=== PATIENT | female | born 1965 | race Caucasian/White ===

== ENCOUNTER 2024-12-08 09:00 | Outpatient (REF) | payer OTHER, SELFPAY ==
--- NOTE | ~2024-12-08 | XR_ITS ---
EXAMINATION: XR HIP 2 OR MORE VIEWS RIGHT HISTORY: M25.551 - Pain in right hip COMPARISON: There are no prior studies available for comparison. FINDINGS: A single AP view of the pelvis and two views of the right hip are submitted. Osseous mineralization is normal. There is no fracture or dislocation. There is mild joint space narrowing. The soft tissues are unremarkable. XR/XR hip RT min 2V IMPRESSION: Mild joint space narrowing. Electronically signed by: Jim Guevara MD 12/08/2024 03:20 PM EDT
--- OUTSIDE RECORDS SUMMARY | 2024-12-09 09:38 | XMS_ITS | Patient Health Record ---
Author Organization [employer] Address [address] [place] [address] Care Team Providers Care Die Trimmer Name Role Phone OSMARNguyen DELUCA Primary Care Provider [phone] Cyndi Sanchez Unavailable [phone] Tova Garcia Unavailable [phone] Allergies Allergen (clinical drug ingredient) Drug/Non Drug Allergy documented on EMR Reaction Allergy Type Onset Date Status Pollen pollen (uncoded) Unknown Allergy Act marcos sertraline Zoloft Unknown Drug Allergy Active Results Component Value Reference Range Notes Albumin/Creatinine Ratio,Uri ne-[id number] Reviewed date:11/12/2024 07:49:44 AM Interpretation: Performing Lab:[facility], [address] [facility], Phone - [phone], Director - MDJustiny Notes/Report: Creatinine, Urine 120.9 Not Estab. mg/dL Albumin, Urine 4.9 Not Estab. ug/mL Alb/Creat Ratio 4 0-29 mg/g creat Normal: 0 - 29 Moderately increased: 30 - 300 Severely increased: >300 Lipid Panel-[id number] Reviewed date:11/12/2024 07:49:46 AM Interpretation: Performing Lab:[facility], [address] [facility], [place], Phone - [phone], Director - MDCaroledry Notes/Report: Cholesterol, Total 219 100-199 mg/dL Triglycerides 150 0-149 mg/dL HDL Cholesterol 56 >39 mg/dL VLDL Cholesterol Tashi 27 5-40 mg/dL LDL Chol Calc (NIH) 136 0-99 mg/dL Comp. Metabolic Panel (14)-3 [id number] Reviewed date:11/12/2024 07:49:49 AM Interpretation: Performing Lab:[facility], [address] [place] [address], Phone - [phone], Director - Ana Notes/Report: Glucose 147 70-99 [...] IU/L ALT (SGPT) 44 0-32 IU/L Hemoglobin [id number] Reviewed date:11/12/2024 07:49:41 AM Interpretation: Performing Lab:[facility] [place], [address] [place] [address], Phone - [phone], Director - Ana Notes/Report: Hemoglobin A1c 6.8 4.8-5.6 % . Prediabetes: 5.7 - 6.4 Diabetes: >6.4 Glycemic control for adults with diabetes: <7.0 Hemoglobin A1c Reviewed date:05/12/2024 07:29:17 AM Interpretation: Performing Lab:[facility], [address] [place] [address], Phone - [phone], Director - Victoriano Notes/Report: Hemoglobin A1c 6.6 Reference Range: [place] [employer] (ADA) Guidelines: <5.7: Decreased risk for diabetes 5.7 - 6.4: Increased risk for diabetes >6.4: Ongoing Hyperglycemia of any cause <7.0: Glycemic control for adults with diabetes Estimated Average Glucose 143 Albumin/Creatinine Ratio,Uri ne-[id number] Reviewed date:05/12/2024 07:28:28 AM Interpretation: Performing Lab:[facility] [place], [address] [place] [address], Phone - [phone], Director - Ana Notes/Report: Creatinine, Urine 184.9 Not Estab. mg/dL Albumin, Urine 18.3 Not Estab. ug/mL Alb/Creat Ratio 10 0-29 mg/g creat Normal: 0 - 29 Moderately increased: 30 - 300 Severely increased: >300 Reason For Referral Reason Evaluation and manag ement Diagnosis 1 Obstructive sleep ap bradly (adult) (pediatric) (G47.33) Referral Organization [facility] Referring Provider First Name SANDRINE Referring Provider Last Name BENITO Referring Provider Speciality Internal edicine Referred Provider Specialty Sleep Medici ne General Notes Referral sent [facility] - Office will call patient for scheduling.Enedelia Latraya 04/08/2024 01:14:56 PM > Referral Priority Routine Reason Evaluation and manag ement Diagnosis 1 Encounter for screen ing for malignant neoplasm of skin (Z12.83) Referral Organization [facility] Referring Provider First Name Tova Referring Provider Last Name Radha Referred Provider Specialty Dermatology General Notes Referral sent to [facility] ([address] [place] [address] ) - Office will call patient for scheduling., Jules Mcdaniels 05/15/2024 01:20:45 PM > Referral Priority Routine Reason Evaluation and manag ement Diagnosis 1 Type 2 diabetes melita itus with unspecified complications (E11.8) Referral Organization [facility] Referring Provider First Name Tova Referring Provider Last Name Radha Referred Provider Specialty Vascular Tulio lonny General Notes Referral sent to [facility] ([address] [address] ) - Office will call patient for scheduling.Enedelia Latraya 05/15/2024 02:06:39 PM > Referral Priority Routine Reason Please evaluate and treat Please evaluate and treat Diagnosis 1 Right upper quadrant pain (R10.11) Referral Organization [facility] Referring Provider First Name SANDRINE Referring Provider Last Name BENITO Referring Provider Speciality Internal edicine Referred Provider Specialty Orthopedic S urgery General Notes Please call the [facility] to schedule the appointment, Ioana Maher [...] Active Misc. Devices - Auto CPAP machine [facility] heated humidifier, Setting 9-12 cm H20, please [...] 500 MG TAKE 1 TABLET BY [place] [facility] TWICE DAILY WITH A MEAL for 30 [...] Disorder due to type 2 diabetes mellitus (176974514) Type 2 diabetes mellitus with unspecified complications (E11.8) Active confirmed Problem Morbid obesity (disorder) (945300163) Morbid (severe) obesity due to excess calories (E66.01) Active confirmed Problem Mixed hyperlipidemia (930426447) Mixed hyperlipidemia (E78.2) Active confirmed Problem Generalized anxiety disorder (09800224) Generalized anxiety disorder (F41.1) Active confirmed Problem Anxiety disorder (328138764) Anxiety disorder, unspecified (F41.9) Active confirmed Problem Obstructive sleep apnea syndrome (46068167) Obstructive sleep apnea (adult) (pediatric) (G47.33) Active confirmed Problem Gastro-esophageal reflux disease without esophagitis (325276595) Gastro-esophageal reflux disease without esophagitis (K21.9) Active confirmed Problem Fatty liver (301490240) Fatty (change of) liver, not elsewhere classified (K76.0) Active confirmed Problem Adult health examination (758666167) Encounter for general adult medical examination without abnormal findings (Z00.00) Active confirmed Problem Essential hypertension (43451479) Essential (primary) hypertension (I10) Active confirmed Vital Signs Heart Rate 91 /min 09/18/2024 Temperature 97.6 degrees Fahrenheit 09/18/2024 Blood pressure diastolic 82 mm Hg 09/18/2024 Oximetry 97 % 09/18/2024 Height 61.61 in 09/18/2024 Blood pressure systolic 110 mm Hg 09/18/2024 Weight 290.6 lbs 09/18/2024 BMI 53.82 kg/m2 09/18/2024 Encounters Encounter Location Date Provider Diagnosis [address] [place] [address] 04/22/[address] [place] [address] 05/13/2024 Tova Garcia Type 2 diabetes mellitus with unspecified complications E11.8 ; Annual visit for general adult medical examination without abnormal findings Z00.00 ; Essential (primary) hypertension I10 ; Generalized anxiety disorder F41.1 ; Gastro-esophageal reflux disease without esophagitis K21.9 ; Fatty (change of) liver, not elsewhere classified K76.0 and Obstructive sleep apnea (adult) (pediatric) G47.[address] [place] [address] 09/18/2024 SANDRINE OLIVER Type 2 diabetes mellitus with unspecified complications E11.8 ; Pain in right hip M25.551 ; Essential (primary) hypertension I10 ; Generalized anxiety disorder F41.1 ; Gastro-esophageal reflux disease without esophagitis K21.9 ; Fatty (change of) liver, not elsewhere classified K76.0 and Obstructive sleep apnea (adult) (pediatric) G47.33 [facility] [address] [facility] [facility] [address] [place] [address] 11/13/2024 Ghadeer Khalifloum Type 2 diabetes mellitus with unspecified complications E11.8 ; Pain in right hip M25.551 ; Essential (primary) hypertension I10 ; Generalized anxiety disorder F41.1 ; Gastro-esophageal reflux disease without esophagitis K21.9 ; Fatty (change of) liver, not elsewhere classified K76.0 ; Obstructive sleep apnea (adult) (pediatric) G47.33 and Mixed hyperlipidemia E78.[address] [place] [address] 12/10/[address] [place] [address] 12/19/[address] [place] [address] 12/21/2023 [facility] Type 2 diabetes mellitus with unspecified complications E11.[address] [place] [address] 01/17/2024 Tova Khalifemili Generalized anxiety disorder F41.[address] [place] [address] 01/21/[address] [place] [address] 05/13/[address] [place] [address] 05/15/[address] [place] [address] 05/22/[address] [place] [address] 09/05/2024 [facility] [address] [facility] [address] [facility] [place] [address] 11/11/2024 [facility] [address] [facility] [address] [place] [address] 12/10/2023 [facility] [address] [address] [facility] [address] [facility] [place] [address] 12/25/2023 [facility] [address] [facility] [address] [facility] [place] [address] 12/26/2023 [facility] [address] [facility] [address] [facility] [place] [address] 12/27/2023 [facility] [address] [facility] [address] [facility] [place] [address] 01/09/2024 [facility] [address] [facility] [address] [facility] [place] [address] 01/13/2024 [facility] [address] [facility] [address] [facility] [place] [address] 01/14/2024 [facility] [address] [address] [facility] [place] [address] 01/22/2024 [facility] [address] [facility] [address] [facility] [place] [address] 01/22/2024 [facility] [address] [facility] [place] [address] 01/23/2024 [facility] [address] [address] [facility] [place] [address] 03/11/2024 [facility] [address] [facility] [address] [facility] [place] [address] 03/14/2024 [facility] [address] [facility] [address] [facility] [place] [address] 03/14/[address] [place] [address] 04/06/[address] [place] [address] 04/08/[address] [place] [address] 04/15/[address] [place] [address] 04/16/[address] [place] [address] 04/17/[address] [place] [address] 04/17/[address] [place] [address] 04/18/[address] [place] [address] 09/24/2024 [facility] Assessments Encounter Date Diagnosis (ICD Code) Assessment [...] on taking full tab. 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 Foot care [...] on taking full tab. 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 Foot care [...] and referral to orthopedic. She can take slvl-udu-oruksui Tylenol arthritis along with NSAIDs with food. Encouraged to lose weight DM type II. -A1c is 6.6. She has been taking Jardiance 25mg half tab. Advised on taking full tab. 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 Foot care [...] and referral to orthopedic. She can take bevn-myt-tmjyitl Tylenol arthritis along with NSAIDs with food. Encouraged to lose weight DM type II. -A1c is 6.6. She has been taking Jardiance 25mg half tab. Advised on taking full tab. 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 Foot care [...] taking Jardiance 25mg . 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 Foot care [...] during this telemedicine visit. Provider located at [facility] [place] in [facility] General concerns have been [...] taking Jardiance 25mg . 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 Foot care [...] during this telemedicine visit. Provider located at [facility] [place] in [facility] General concerns have been [...] taking Jardiance 25mg . 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 Foot care [...] during this telemedicine visit. Provider located at [facility] [place] in [facility] General concerns have been [...] on taking full tab. 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 Foot care [...] and referral to orthopedic. She can take phsq-sxp-tkxinnw Tylenol arthritis along with NSAIDs with food. Encouraged to lose weight DM type II. -A1c is 6.6. She has been taking Jardiance 25mg half tab. Advised on taking full tab. 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 Foot care [...] and referral to orthopedic. She can take kzqy-bud-vbviezv Tylenol arthritis along with NSAIDs with food. Encouraged to lose weight DM type II. -A1c is 6.6. She has been taking Jardiance 25mg half tab. Advised on taking full tab. 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 Foot care [...] on taking full tab. 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 Foot care [...] taking Jardiance 25mg . 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 Foot care [...] during this telemedicine visit. Provider located at [facility] in [place] in [facility] General concerns have been [...] taking Jardiance 25mg . 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 Foot care [...] during this telemedicine visit. Provider located at [facility] [place] in [facility] General concerns have been [...] on taking full tab. 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 Foot care [...] and referral to orthopedic. She can take tvzg-hhi-ukooleo Tylenol arthritis along with NSAIDs with food. Encouraged to lose weight DM type II. -A1c is 6.6. She has been taking Jardiance 25mg half tab. Advised on taking full tab. 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 Foot care [...] and referral to orthopedic. She can take pbrq-djg-rloxsyo Tylenol arthritis along with NSAIDs with food. Encouraged to lose weight DM type II. -A1c is 6.6. She has been taking Jardiance 25mg half tab. Advised on taking full tab. 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 Foot care [...] on taking full tab. 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 Foot care [...] taking Jardiance 25mg . 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 Foot care [...] during this telemedicine visit. Provider located at [facility] [place] in [facility] General concerns have been [...] taking Jardiance 25mg . 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 Foot care [...] during this telemedicine visit. Provider located at [facility] [place] in [facility] General concerns have been [...] on taking full tab. 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 Foot care [...] and referral to orthopedic. She can take kemg-hvj-ascjiqb Tylenol arthritis along with NSAIDs with food. Encouraged to lose weight DM type II. -A1c is 6.6. She has been taking Jardiance 25mg half tab. Advised on taking full tab. 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 Foot care [...] taking Jardiance 25mg . 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 Foot care [...] during this telemedicine visit. Provider located at [facility] [place] in [facility] General concerns have been [...] palpitation we can refer her to a corn chip maker for 30 days loop recorder Hypertension will control continue current Saniya Diabetes mellitus controlled continue the audience and metformin All questions were answered today no new acute issues Plan Of Treatment Pending Test Test Name Order Date X ray : Knee, left 2 views 12/19/2018 Electrocardiogram (ECG) 12/06/2017 Xray: Hip Ktyus-Mxutnkrh-Ixo 2 Vws 09/18 Hemoglobin [id number] 05/13/2024 Lipid Panel-[id number] 11/13/2024 Future Test Test Name Order Date US Liver 12/06/2017 Insurance Providers Payer Name Payer Address Payer Phone Subscriber Number Group Number Insured Name Patient Relationship to Insured Coverage Start Date Coverage End Date [employer] [address] [place] [phone] [id number] Yulisa Dominguez Self - patient is the insured Medical (General) History Medical History History ICD Code hypertension, benign Anxiety disorder Fatty liver and mild hepatomegaly Obstructive sleep apnea Class III obesity diabetes mellitus type 2 Surgical History Surgery Date(Month/Year) knee surgery polypectomy, uterine polyps 08/2020 polypectomy, uterine polyps 11/2021 total hysterectomy, Dr. Broussard [facility] 05/2022 Hospitalization History Reason Date(Month/Year)
== END 2024-12-08 09:01 | disposition home or self-care (01) ==
LOC: HO.HOSX 09:00
PROVIDERS: Visit Provider Physician Assistant
DX: M25.551 Pain in right hip (principal)
CPT/HCPCS: 73502

== ENCOUNTER 2024-12-08 14:27 | Outpatient (AMB) | payer OTHER, SELFPAY ==
--- NOTE | 2024-12-08 14:34 | A.OFFVIS_ITS ---
Vital Signs 12/08/24 14:47 Height 5 ft 1 in Intake Visit Reasons: [employer]-Right hip pain Intake Note: Yulisa is a 59 year old female who presents as a new patient for an evaluation of right hip pain. Patient was seen by her PCP for right groin pain that started in May/June of 2023. Denies injury. Patient reports that she is unsure if her pain is related to her bone on bone in both of her knees. She also states unsure if this is related to her back, stating today when she moved her head to the side she felt pain in her hip. Her pain is located in her groin area and she has numbness in her upper thigh area. At times her pain makes it difficult at times to apply weight. No previous treatment. She uses a cane with ambulation. Allergies pollen extracts Allergy (Verified 12/08/24 14:36) Unknown sertraline [From Zoloft] Adverse Reaction (Verified 12/08/24 14:42) vomitting, fever HPI HPI [employer]-Right hip pain: Details: 59 yo female presents to the office today for right hip pain. She states the pain is located within the groin. She feels the hip catches or locks. PCP suggested Tylenol to help her sleep. She cannot walk long distances. She states the pain is often in the si joint region and when palpated it does extend to the groin. She denies n/t She denies lateral sided hip pain. 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 No pain with hip flexion. Mild discomfort over the si joint. NVI. Results Reviewed Results Reviewed: Xrays were obtained in the office today and personally reviewed by me of the right hip show mild oa Assessment & Plan Assessment & Plan (1) Chronic SI joint pain: Code(s): M53.3 - Sacrococcygeal disorders, not elsewhere classified; G89.29 - Other chronic pain Category: Medical Plan: I recommend a course of PT to work on glute strength and lumbar /core stabilization . I did educate her on Pelvic floor therapy and how this can be helpful is resolving her hip/buttock pain. I explained the internal pelvic floor muscles an contribute to lowback / hip pain and tightness. I gave her some information on a contact center manager for pelvic floor therapy as well. If symptoms persist or worsen, she will contact me, otherwise, f/u prn. Orders: Orders XR hip RT min 2V Today M25.551 - Pain in right hip PT Evaluation and Treatment Today G89.29 - Other chronic pain, M53.3 - Sacrococcygeal disorders, not elsewhere classified Medications: New celecoxib (Celebrex) 200 mg PO BID 60 caps 3RF 30 days Coding Level of Care Code New Pt Level 3 (32220) Diagnoses Chronic SI joint pain M53.3; G89.29
--- OUTSIDE RECORDS SUMMARY | 2024-12-08 16:21 | XMS_ITS | Patient Health Record ---
Author Organization [facility] Address [address] [place] [address] Care Team Providers Care Business Intelligence Developer Name Role Phone BENITO DELUCA Primary Care Provider [phone] Cyndi Sanchez Unavailable [phone] Tova Garcia Unavailable [phone] Allergies Allergen (clinical drug ingredient) Drug/Non Drug Allergy documented on EMR Reaction Allergy Type Onset Date Status Pollen pollen (uncoded) Unknown Allergy Act marcos sertraline Zoloft Unknown Drug Allergy Active Results Component Value Reference Range Notes Albumin/Creatinine Ratio,Uri [id number] Reviewed date:05/12/2024 07:28:28 AM Interpretation: Performing Lab:[facility], [facility], [place], Phone - [phone], Director - Mathieuy Notes/Report: Creatinine, Urine 184.9 Not Estab. mg/dL Albumin, Urine 18.3 Not Estab. ug/mL Alb/Creat Ratio 10 0-29 mg/g creat Normal: 0 - 29 Moderately increased: 30 - 300 Severely increased: >300 Hemoglobin [id number] Reviewed date:11/12/2024 07:49:41 AM Interpretation: Performing Lab:[facility], [facility], [place], Phone - [phone], Director - MDJustiny Notes/Report: Hemoglobin A1c 6.8 4.8-5.6 % . Prediabetes: 5.7 - 6.4 Diabetes: >6.4 Glycemic control for adults with diabetes: <7.0 Albumin/Creatinine Ratio,Uri [id number] Reviewed date:11/12/2024 07:49:44 AM Interpretation: Performing Lab:[facility], [address], Phone - [phone], Director - Ana Notes/Report: Creatinine, Urine 120.9 Not Estab. mg/dL Albumin, Urine 4.9 Not Estab. ug/mL Alb/Creat Ratio 4 0-29 mg/g creat Normal: 0 - 29 Moderately increased: 30 - 300 Severely increased: >300 Lipid [id number] Reviewed date:11/12/2024 07:49:46 AM Interpretation: Performing Lab:[facility] [place], [address] [place] [address], Phone - [phone], Director - Ana Notes/Report: Cholesterol, Total 219 100-199 mg/dL Triglycerides 150 0-149 mg/dL HDL Cholesterol 56 >39 mg/dL VLDL Cholesterol Tashi 27 5-40 mg/dL LDL Chol Calc ([facility]) 136 0-99 mg/dL Comp. Metabolic Panel (14)-3 Reviewed date:11/12/2024 07:49:49 AM Interpretation: Performing Lab:[facility] [place], [address] [place] [address], Phone - [phone], Director - Ana Notes/Report: Glucose 147 70-99 mg/dL BUN 21 6-24 mg/dL Creatinine 1.02 0.57-1.00 mg/dL eGFR 63 >59 mL/min/1.73 BUN/Creatinine Ratio 21 9-23 Sodium 139 134-144 mmol/L Potassium 4.1 3.5-5.2 mmol/L Chloride 97 96-106 mmol/L Carbon Dioxide, Total 20 20-29 mmol/L Calcium 10.2 8.7-10.2 mg/dL Protein, Total 7.6 6.0-8.5 g/dL Albumin 4.4 3.8-4.9 g/dL Globulin, Total 3.2 1.5-4.5 g/dL Bilirubin, Total 0.7 0.0-1.2 mg/dL Alkaline Phosphatase 77 44-121 IU/L AST (SGOT) 33 0-40 IU/L ALT (SGPT) 44 0-32 IU/L Hemoglobin A1c Reviewed date:05/12/2024 07:29:17 AM Interpretation: Performing Lab:[facility], [address] [place] [address], Phone - [phone], Director [facility] Notes/Report: Hemoglobin A1c 6.6 Reference Range: [place] [employer] (ADA) Guidelines: <5.7: Decreased risk for diabetes 5.7 - 6.4: Increased risk for diabetes >6.4: Ongoing Hyperglycemia of any cause <7.0: Glycemic control for adults with diabetes Estimated Average Glucose 143 Reason For Referral Reason Evaluation and manag ement Diagnosis 1 Obstructive sleep ap bradly (adult) (pediatric) (G47.33) Referral Organization [facility] Referring Provider First Name SANDRINE Referring Provider Last Name BENITO Referring Provider Speciality Internal edicine Referred Provider Specialty Sleep Medici ne General Notes Referral sent to [facility] Medicine Services [facility] - Office will call patient for scheduling.Enedelia Latraya 04/08/2024 01:14:56 PM > Referral Priority Routine Reason Evaluation and manag ement Diagnosis 1 Encounter for screen ing for malignant neoplasm of skin (Z12.83) Referral Organization [facility] Referring Provider First Name Tova Referring Provider Last Name Radha Referred Provider Specialty Dermatology General Notes Referral sent to [facility] ([address] [place] [address] ) - Office will call patient for scheduling., Jules Mcdaniels 05/15/2024 01:20:45 PM > Referral Priority Routine Reason Evaluation and manag ement Diagnosis 1 Type 2 diabetes melita itus with unspecified complications (E11.8) Referral Organization [facility] Referring Provider First Name Tova Referring Provider Last Name Radha Referred Provider Specialty Vascular Tulio lonny General Notes Referral sent to [facility] ([address] [address] ) - Office will call patient for scheduling.Enedelia Latraya 05/15/2024 02:06:39 PM > Referral Priority Routine Reason Please evaluate and treat Please evaluate and treat Diagnosis 1 Right upper quadrant pain (R10.11) Referral Organization [facility] Referring Provider First Name SANDRINE Referring Provider Last Name BENITO Referring Provider Speciality Internal edicine Referred Provider Specialty Orthopedic S urgery General Notes Please call the [facility] ent to schedule the appointment, Ioana Maher 10/06/2024 04:47:23 PM > Referral Priority Routine Medications Medication SIG (Take, Route, Frequency, Duration) Notes Start Date End Date Status Jardiance 25 MG 1 tablet Orally Once a day for 30 days Active hydrOXYzine HCl 25 MG TAKE 1 TABLET BY M OUTH DAILY as NEEDED Orally every 8 hrs for 30 days Active Vitamin C 500 MG as directed Orally Active Misc. Devices - Auto CPAP machine [facility] and home heated humidifier, Setting 9-12 cm H20, please include headgear, filters and tubing Dx: ASHLEY for 90 days 04/17/2024 Active Pravastatin Sodium 20 MG 1 tablet Orally Once a day for 30 days 11/13/2024 Active Ozempic (0.25 or 0.5 MG/DOSE) 2 MG/3ML inject 2 mg Subcutaneously every week for 30 days Not-Taking Vitamin D 1000 UNIT 1 tablet Orally Once a day for 30 day(s) Active Sertraline HCl 25 MG 1 tablet Orally Onc e a day for 30 days 12/05/2023 Not-Taking Aspirin Adult Low Strength 81 MG 1 tablet Orally Once a day for 30 day(s) Active metFORMIN HCl 500 MG TAKE 1 TABLET BY MO [facility] TWICE DAILY WITH A MEAL for 30 Not-Taking Omeprazole 20 MG 1 capsule Orally Onc e a day Active Voltaren 1 % as directed Transder mal Twice a day for 30 days 12/17/2019 Not-Taki ng LORazepam 0.5 1 tablet as needed O rally Once a day for 30 04/27/2023 Not-Taking Multivitamin Adult - as directed Orally Active LORazepam 0.5 MG TAKE 1 TABLET BY DEA EVERY DAY NEEDED for 30 12/26/2023 Not-Taking Losartan Potassium-HCTZ 50-12.5 MG 1 tablet Orally Once a day for 30 days Active Pravastatin Sodium 10 MG TAKE 1 TABLET BY MOUTH EVERY DAY for 30 days Active Social History Tobacco Use: Social History Observation Description Date Details (start date - stop date) Never Smoker NA - NA Tobacco Use/Smoking Question Answer Notes Are you a nonsmoker Alcohol Screen (Audit-C) Question Answer Notes Did you have a drink containing alcohol in the p ast year? No Points 0 Interpretation Negative Problems Problem Type SNOMED Code ICD Code Onset Dates Problem Status W/U Status Risk Notes Problem Disorder due to type 2 diabetes mellitus (840790177) Type 2 diabetes mellitus with unspecified complications (E11.8) Active confirmed Problem Morbid obesity (disorder) (962223280) Morbid (severe) obesity due to excess calories (E66.01) Active confirmed Problem Mixed hyperlipidemia (793803878) Mixed hyperlipidemia (E78.2) Active confirmed Problem Generalized anxiety disorder (16204931) Generalized anxiety disorder (F41.1) Active confirmed Problem Anxiety disorder (577407142) Anxiety disorder, unspecified (F41.9) Active confirmed Problem Obstructive sleep apnea syndrome (89742259) Obstructive sleep apnea (adult) (pediatric) (G47.33) Active confirmed Problem Gastro-esophageal reflux disease without esophagitis (610390483) Gastro-esophageal reflux disease without esophagitis (K21.9) Active confirmed Problem Fatty liver (391120471) Fatty (change of) liver, not elsewhere classified (K76.0) Active confirmed Problem Adult health examination (148891927) Encounter for general adult medical examination without abnormal findings (Z00.00) Active confirmed Problem Essential hypertension (94077062) Essential (primary) hypertension (I10) Active confirmed Vital Signs Heart Rate 91 /min 09/18/2024 Temperature 97.6 degrees Fahrenheit 09/18/2024 Blood pressure diastolic 82 mm Hg 09/18/2024 Oximetry 97 % 09/18/2024 Height 61.61 in 09/18/2024 Blood pressure systolic 110 mm Hg 09/18/2024 Weight 290.6 lbs 09/18/2024 BMI 53.82 kg/m2 09/18/2024 Encounters Encounter Location Date Provider Diagnosis [address] [place] [address] 04/22/[address] [place] [address] 05/13/2024 Tova Garcia Type 2 diabetes mellitus with unspecified complications E11.8 ; Annual visit for general adult medical examination without abnormal findings Z00.00 ; Essential (primary) hypertension I10 ; Generalized anxiety disorder F41.1 ; Gastro-esophageal reflux disease without esophagitis K21.9 ; Fatty (change of) liver, not elsewhere classified K76.0 and Obstructive sleep apnea (adult) (pediatric) G47.[address] [place] [address] 09/18/2024 SANDRINE OLIVER Type 2 diabetes mellitus with unspecified complications E11.8 ; Pain in right hip M25.551 ; Essential (primary) hypertension I10 ; Generalized anxiety disorder F41.1 ; Gastro-esophageal reflux disease without esophagitis K21.9 ; Fatty (change of) liver, not elsewhere classified K76.0 and Obstructive sleep apnea (adult) (pediatric) G47.33 [facility] [address] [place] [address] 11/13/2024 Ghadeer Khalifloum Type 2 diabetes mellitus with unspecified complications E11.8 ; Pain in right hip M25.551 ; Essential (primary) hypertension I10 ; Generalized anxiety disorder F41.1 ; Gastro-esophageal reflux disease without esophagitis K21.9 ; Fatty (change of) liver, not elsewhere classified K76.0 ; Obstructive sleep apnea (adult) (pediatric) G47.33 and Mixed hyperlipidemia E78.[address] [place] [address] 12/10/[address] [place] [address] 12/19/[address] [place] [address] 12/21/2023 [facility] Type 2 diabetes mellitus with unspecified complications E11.[address] [place] [address] 01/17/2024 Tova Khalifemili Generalized anxiety disorder F41.[address] [place] [address] 01/21/[address] [place] [address] 05/13/[address] [place] [address] 05/15/[address] [place] [address] 05/22/[address] [place] [address] 09/05/2024 [facility] [address] [facility] [place] [address] 11/11/2024 [facility] [address] [place] [address] 12/10/2023 [facility] [address] [facility] [place] [address] 12/25/2023 [facility] [address] [facility] [place] [address] 12/26/2023 [facility] [address] [facility] [place] [address] 12/27/2023 [facility] [address] [facility] [place] [address] 01/09/2024 [facility] [address] [facility] [place] [address] 01/13/2024 [facility] [address] [facility] [place] [address] 01/14/2024 [facility] [address] [facility] [place] [address] 01/22/2024 [facility] [address] [facility] [place] [address] 01/22/2024 [facility] [address] [facility] [place] [address] 01/23/2024 [facility] [address] [facility] [place] [address] 03/11/2024 [facility] [address] [facility] [place] [address] 03/14/2024 [facility] [address] [facility] [place] [address] 03/14/[address] [place] [address] 04/06/[address] [place] [address] 04/08/[address] [place] [address] 04/15/[address] [place] [address] 04/16/[address] [place] [address] 04/17/[address] [place] [address] 04/17/[address] [place] [address] 04/18/[address] [place] [address] 09/24/2024 [facility] Assessments Encounter Date Diagnosis (ICD Code) Assessment Notes Treatment Notes Treatment Clinical Notes Section Notes 12/21/2023 Type 2 diabetes mellitus with unspecified complications (ICD-10 - E11.8) 01/17/2024 Generalized anxiety disorder (ICD-10 - F41.1) 05/13/2024 Type 2 diabetes mellitus with unspecified complications (ICD-10 - E11.8) Mrs. Dominguez is a 58-year-old lady with hypertension, acid reflux, generalized anxiety disorder and morbid obesity here for follow up. Plan is as follows: DM type II. -A1c is 6.6. She has been taking Jardiance 25mg half tab. Advised on taking full tab. 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 Foot care discussed. Advised weight loss and goal blood sugars is less than 130 in the morning and postprandial less than 180 - Referred patient to Vascular. Hypertension. EKG is done in the office today. HR of 79bpm. Sinus Rhythm. No ST elevation or depression. No BBB. -Blood pressure well controlled on current regimen. Continue Losartan Potassium-HCTZ 50-12.5 MG daily Hyperlipidemia. -Last lipid panel within normal limits. Suggested dietary modifications. Continue Pravastatin 10 MG daily. - Fatty liver. Weight loss recommended and avoid heavy doses of Tylenol. GERD. -Continue Omeprazole 20 MG Once a day. ASHLEY. -She sleeps well on CPAP. ADE. - Stable. She stopped Lorazepam. She is on Hydroxyzine as needed. Morbid obesity. - Advised dietary restrictions and regimental exercise. Goal is to lose 5-6 lbs a month. Vision screening: Vision is stable hearing is stable. She is UTD on screenings and vaccinations. PHQ-9 of 0. Screening blood work before next appointment. General health concerns discussed with patient. I have rendered the services for this patient under direct supervision of Dr. Oliver, who did not see the patient but was available upon request 05/13/2024 Annual visit for general adult medical examination without abnormal findings (ICD-10 - Z00.00) Mrs. Dominguez is a 58-year-old lady with hypertension, acid reflux, generalized anxiety disorder and morbid obesity here for follow up. Plan is as follows: DM type II. -A1c is 6.6. She has been taking Jardiance 25mg half tab. Advised on taking full tab. 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 Foot care discussed. Advised weight loss and goal blood sugars is less than 130 in the morning and postprandial less than 180 - Referred patient to Vascular. Hypertension. EKG is done in the office today. HR of 79bpm. Sinus Rhythm. No ST elevation or depression. No BBB. -Blood pressure well controlled on current regimen. Continue Losartan Potassium-HCTZ 50-12.5 MG daily Hyperlipidemia. -Last lipid panel within normal limits. Suggested dietary modifications. Continue Pravastatin 10 MG daily. - Fatty liver. Weight loss recommended and avoid heavy doses of Tylenol. GERD. -Continue Omeprazole 20 MG Once a day. ASHLEY. -She sleeps well on CPAP. ADE. - Stable. She stopped Lorazepam. She is on Hydroxyzine as needed. Morbid obesity. - Advised dietary restrictions and regimental exercise. Goal is to lose 5-6 lbs a month. Vision screening: Vision is stable hearing is stable. She is UTD on screenings and vaccinations. PHQ-9 of 0. Screening blood work before next appointment. General health concerns discussed with patient. I have rendered the services for this patient under direct supervision of Dr. Oliver, who did not see the patient but was available upon request 09/18/2024 Type 2 diabetes mellitus with unspecified complications (ICD-10 - E11.8) Mrs. Dominguez is a 58-year-old lady with hypertension, acid reflux, generalized anxiety disorder and morbid obesity here for follow-up and also complains of right hip joint pain Plan is as follows: Right hip joint pain. Differential is osteoarthritis, tendinitis. Will do x-ray of the right hip joint. She is not interested to have physical therapy and referral to orthopedic. She can take [id number] Tylenol arthritis along with NSAIDs with food. Encouraged to lose weight DM type II. -A1c is 6.6. She has been taking Jardiance 25mg half tab. Advised on taking full tab. 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 Foot care discussed. Advised weight loss and goal blood sugars is less than 130 in the morning and postprandial less than 180 - Referred patient to Vascular. Hypertension. EKG is done in the office today. HR of 79bpm. Sinus Rhythm. No ST elevation or depression. No BBB. -Blood pressure well controlled on current regimen. Continue Losartan Potassium-HCTZ 50-12.5 MG daily Hyperlipidemia. -Last lipid panel within normal limits. Suggested dietary modifications. Continue Pravastatin 10 MG daily. - Fatty liver. Weight loss recommended and avoid heavy doses of Tylenol. GERD. -Continue Omeprazole 20 MG Once a day. ASHLEY. -She sleeps well on CPAP. ADE. - Stable. She stopped Lorazepam. She is on Hydroxyzine as needed. Morbid obesity. - Advised dietary restrictions and regimental exercise. Goal is to lose 5-6 lbs a month. Vision screening: Vision is stable hearing is stable. She is UTD on screenings and vaccinations. PHQ-9 of 0. Screening blood work before next appointment. General health concerns discussed with patient. 09/18/2024 Pain in right hip (ICD-10 - M25.551) Mrs. Dominguez is a 58-year-old lady with hypertension, acid reflux, generalized anxiety disorder and morbid obesity here for follow-up and also complains of right hip joint pain Plan is as follows: Right hip joint pain. Differential is osteoarthritis, tendinitis. Will do x-ray of the right hip joint. She is not interested to have physical therapy and referral to orthopedic. She can take [id number] Tylenol arthritis along with NSAIDs with food. Encouraged to lose weight DM type II. -A1c is 6.6. She has been taking Jardiance 25mg half tab. Advised on taking full tab. 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 Foot care discussed. Advised weight loss and goal blood sugars is less than 130 in the morning and postprandial less than 180 - Referred patient to Vascular. Hypertension. EKG is done in the office today. HR of 79bpm. Sinus Rhythm. No ST elevation or depression. No BBB. -Blood pressure well controlled on current regimen. Continue Losartan Potassium-HCTZ 50-12.5 MG daily Hyperlipidemia. -Last lipid panel within normal limits. Suggested dietary modifications. Continue Pravastatin 10 MG daily. - Fatty liver. Weight loss recommended and avoid heavy doses of Tylenol. GERD. -Continue Omeprazole 20 MG Once a day. ASHLEY. -She sleeps well on CPAP. ADE. - Stable. She stopped Lorazepam. She is on Hydroxyzine as needed. Morbid obesity. - Advised dietary restrictions and regimental exercise. Goal is to lose 5-6 lbs a month. Vision screening: Vision is stable hearing is stable. She is UTD on screenings and vaccinations. PHQ-9 of 0. Screening blood work before next appointment. General health concerns discussed with patient. 11/13/2024 Type 2 diabetes mellitus with unspecified complications (ICD-10 - E11.8) Mrs. Dominguez is a 58-year-old lady with hypertension, acid reflux, generalized anxiety disorder and morbid obesity here for follow-up. Plan is as follows: DM type II. -A1c is 6.8. She has been taking Jardiance 25mg . 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 Foot care discussed. Advised weight loss and goal blood sugars is less than 130 in the morning and postprandial less than 180 Right hip joint pain. Differential is osteoarthritis, tendinitis. X-ray of the hip was not concerning, she has been doing stretches at home with improvement. She has an appointment coming up with orthopedic. Continue on Tylenol and Advil With food. Encouraged to lose weight Hypertension. Blood pressure well controlled on current regimen. Continue Losartan Potassium-HCTZ 50-12.5 MG daily Hyperlipidemia. Recent lipid panel is abnormal, goal of total cholesterol to be below 199 and LDL to be below 70. Trigs goal below 150. I have increased Pravastatin 20 MG daily. Modification discussed, will check lipid panel in 4-6 weeks Fatty liver. Weight loss recommended and avoid heavy doses of Tylenol. GERD. Continue Omeprazole 20 MG Once a day. ASHLEY. She sleeps well on CPAP. ADE. Stable. She is on Hydroxyzine as needed. Morbid obesity. Advised dietary restrictions and regimental exercise. Goal is to lose 5-6 lbs a month. Due to current global pandemic of Covid -19 this visit was conducted over telephone in line with National Social Distancing Guidelines. Data gathered during this visit by patient self-report. Patient provided verbal consent to conduct the visit by telemedicine. Patient understands that it is a billable visit. Patient located in a home setting in [facility] during this telemedicine visit. Provider located at [facility] in [place] in [facility] General concerns have been discussed I have rendered the services for this patient under direct supervision of Dr. Oliver, who did not see the patient but was available upon request 11/13/2024 Pain in right hip (ICD-10 - M25.551) Mrs. Dominguez is a 58-year-old lady with hypertension, acid reflux, generalized anxiety disorder and morbid obesity here for follow-up. Plan is as follows: DM type II. -A1c is 6.8. She has been taking Jardiance 25mg . 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 Foot care discussed. Advised weight loss and goal blood sugars is less than 130 in the morning and postprandial less than 180 Right hip joint pain. Differential is osteoarthritis, tendinitis. X-ray of the hip was not concerning, she has been doing stretches at home with improvement. She has an appointment coming up with orthopedic. Continue on Tylenol and Advil With food. Encouraged to lose weight Hypertension. Blood pressure well controlled on current regimen. Continue Losartan Potassium-HCTZ 50-12.5 MG daily Hyperlipidemia. Recent lipid panel is abnormal, goal of total cholesterol to be below 199 and LDL to be below 70. Trigs goal below 150. I have increased Pravastatin 20 MG daily. Modification discussed, will check lipid panel in 4-6 weeks Fatty liver. Weight loss recommended and avoid heavy doses of Tylenol. GERD. Continue Omeprazole 20 MG Once a day. ASHLEY. She sleeps well on CPAP. ADE. Stable. She is on Hydroxyzine as needed. Morbid obesity. Advised dietary restrictions and regimental exercise. Goal is to lose 5-6 lbs a month. Due to current global pandemic of Covid -19 this visit was conducted over telephone in line with National Social Distancing Guidelines. Data gathered during this visit by patient self-report. Patient provided verbal consent to conduct the visit by telemedicine. Patient understands that it is a billable visit. Patient located in a home setting in [facility] during this telemedicine visit. Provider located at [facility] in [place] in [facility] General concerns have been discussed I have rendered the services for this patient under direct supervision of Dr. Oliver, who did not see the patient but was available upon request 11/13/2024 Essential (primary) hypertension (ICD-10 - I10) Mrs. Dominguez is a 58-year-old lady with hypertension, acid reflux, generalized anxiety disorder and morbid obesity here for follow-up. Plan is as follows: DM type II. -A1c is 6.8. She has been taking Jardiance 25mg . 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 Foot care discussed. Advised weight loss and goal blood sugars is less than 130 in the morning and postprandial less than 180 Right hip joint pain. Differential is osteoarthritis, tendinitis. X-ray of the hip was not concerning, she has been doing stretches at home with improvement. She has an appointment coming up with orthopedic. Continue on Tylenol and Advil With food. Encouraged to lose weight Hypertension. Blood pressure well controlled on current regimen. Continue Losartan Potassium-HCTZ 50-12.5 MG daily Hyperlipidemia. Recent lipid panel is abnormal, goal of total cholesterol to be below 199 and LDL to be below 70. Trigs goal below 150. I have increased Pravastatin 20 MG daily. Modification discussed, will check lipid panel in 4-6 weeks Fatty liver. Weight loss recommended and avoid heavy doses of Tylenol. GERD. Continue Omeprazole 20 MG Once a day. ASHLEY. She sleeps well on CPAP. ADE. Stable. She is on Hydroxyzine as needed. Morbid obesity. Advised dietary restrictions and regimental exercise. Goal is to lose 5-6 lbs a month. Due to current global pandemic of Covid -19 this visit was conducted over telephone in line with National Social Distancing Guidelines. Data gathered during this visit by patient self-report. Patient provided verbal consent to conduct the visit by telemedicine. Patient understands that it is a billable visit. Patient located in a home setting in [facility] during this telemedicine visit. Provider located at [facility] in [place] in [facility] General concerns have been discussed I have rendered the services for this patient under direct supervision of Dr. Oliver, who did not see the patient but was available upon request 05/13/2024 Essential (primary) hypertension (ICD-10 - I10) Mrs. Dominguez is a 58-year-old lady with hypertension, acid reflux, generalized anxiety disorder and morbid obesity here for follow up. Plan is as follows: DM type II. -A1c is 6.6. She has been taking Jardiance 25mg half tab. Advised on taking full tab. 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 Foot care discussed. Advised weight loss and goal blood sugars is less than 130 in the morning and postprandial less than 180 - Referred patient to Vascular. Hypertension. EKG is done in the office today. HR of 79bpm. Sinus Rhythm. No ST elevation or depression. No BBB. -Blood pressure well controlled on current regimen. Continue Losartan Potassium-HCTZ 50-12.5 MG daily Hyperlipidemia. -Last lipid panel within normal limits. Suggested dietary modifications. Continue Pravastatin 10 MG daily. - Fatty liver. Weight loss recommended and avoid heavy doses of Tylenol. GERD. -Continue Omeprazole 20 MG Once a day. ASHLEY. -She sleeps well on CPAP. ADE. - Stable. She stopped Lorazepam. She is on Hydroxyzine as needed. Morbid obesity. - Advised dietary restrictions and regimental exercise. Goal is to lose 5-6 lbs a month. Vision screening: Vision is stable hearing is stable. She is UTD on screenings and vaccinations. PHQ-9 of 0. Screening blood work before next appointment. General health concerns discussed with patient. I have rendered the services for this patient under direct supervision of Dr. Oliver, who did not see the patient but was available upon request 09/18/2024 Essential (primary) hypertension (ICD-10 - I10) Mrs. Dominguez is a 58-year-old lady with hypertension, acid reflux, generalized anxiety disorder and morbid obesity here for follow-up and also complains of right hip joint pain Plan is as follows: Right hip joint pain. Differential is osteoarthritis, tendinitis. Will do x-ray of the right hip joint. She is not interested to have physical therapy and referral to orthopedic. She can take [id number] Tylenol arthritis along with NSAIDs with food. Encouraged to lose weight DM type II. -A1c is 6.6. She has been taking Jardiance 25mg half tab. Advised on taking full tab. 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 Foot care discussed. Advised weight loss and goal blood sugars is less than 130 in the morning and postprandial less than 180 - Referred patient to Vascular. Hypertension. EKG is done in the office today. HR of 79bpm. Sinus Rhythm. No ST elevation or depression. No BBB. -Blood pressure well controlled on current regimen. Continue Losartan Potassium-HCTZ 50-12.5 MG daily Hyperlipidemia. -Last lipid panel within normal limits. Suggested dietary modifications. Continue Pravastatin 10 MG daily. - Fatty liver. Weight loss recommended and avoid heavy doses of Tylenol. GERD. -Continue Omeprazole 20 MG Once a day. ASHLEY. -She sleeps well on CPAP. ADE. - Stable. She stopped Lorazepam. She is on Hydroxyzine as needed. Morbid obesity. - Advised dietary restrictions and regimental exercise. Goal is to lose 5-6 lbs a month. Vision screening: Vision is stable hearing is stable. She is UTD on screenings and vaccinations. PHQ-9 of 0. Screening blood work before next appointment. General health concerns discussed with patient. 09/18/2024 Generalized anxiety disorder (ICD-10 - F41.1) Mrs. Dominguez is a 58-year-old lady with hypertension, acid reflux, generalized anxiety disorder and morbid obesity here for follow-up and also complains of right hip joint pain Plan is as follows: Right hip joint pain. Differential is osteoarthritis, tendinitis. Will do x-ray of the right hip joint. She is not interested to have physical therapy and referral to orthopedic. She can take [id number] Tylenol arthritis along with NSAIDs with food. Encouraged to lose weight DM type II. -A1c is 6.6. She has been taking Jardiance 25mg half tab. Advised on taking full tab. 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 Foot care discussed. Advised weight loss and goal blood sugars is less than 130 in the morning and postprandial less than 180 - Referred patient to Vascular. Hypertension. EKG is done in the office today. HR of 79bpm. Sinus Rhythm. No ST elevation or depression. No BBB. -Blood pressure well controlled on current regimen. Continue Losartan Potassium-HCTZ 50-12.5 MG daily Hyperlipidemia. -Last lipid panel within normal limits. Suggested dietary modifications. Continue Pravastatin 10 MG daily. - Fatty liver. Weight loss recommended and avoid heavy doses of Tylenol. GERD. -Continue Omeprazole 20 MG Once a day. ASHLEY. -She sleeps well on CPAP. ADE. - Stable. She stopped Lorazepam. She is on Hydroxyzine as needed. Morbid obesity. - Advised dietary restrictions and regimental exercise. Goal is to lose 5-6 lbs a month. Vision screening: Vision is stable hearing is stable. She is UTD on screenings and vaccinations. PHQ-9 of 0. Screening blood work before next appointment. General health concerns discussed with patient. 05/13/2024 Generalized anxiety disorder (ICD-10 - F41.1) Mrs. Dominguez is a 58-year-old lady with hypertension, acid reflux, generalized anxiety disorder and morbid obesity here for follow up. Plan is as follows: DM type II. -A1c is 6.6. She has been taking Jardiance 25mg half tab. Advised on taking full tab. 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 Foot care discussed. Advised weight loss and goal blood sugars is less than 130 in the morning and postprandial less than 180 - Referred patient to Vascular. Hypertension. EKG is done in the office today. HR of 79bpm. Sinus Rhythm. No ST elevation or depression. No BBB. -Blood pressure well controlled on current regimen. Continue Losartan Potassium-HCTZ 50-12.5 MG daily Hyperlipidemia. -Last lipid panel within normal limits. Suggested dietary modifications. Continue Pravastatin 10 MG daily. - Fatty liver. Weight loss recommended and avoid heavy doses of Tylenol. GERD. -Continue Omeprazole 20 MG Once a day. ASHLEY. -She sleeps well on CPAP. ADE. - Stable. She stopped Lorazepam. She is on Hydroxyzine as needed. Morbid obesity. - Advised dietary restrictions and regimental exercise. Goal is to lose 5-6 lbs a month. Vision screening: Vision is stable hearing is stable. She is UTD on screenings and vaccinations. PHQ-9 of 0. Screening blood work before next appointment. General health concerns discussed with patient. I have rendered the services for this patient under direct supervision of Dr. Oliver, who did not see the patient but was available upon request 11/13/2024 Generalized anxiety disorder (ICD-10 - F41.1) Mrs. Dominguez is a 58-year-old lady with hypertension, acid reflux, generalized anxiety disorder and morbid obesity here for follow-up. Plan is as follows: DM type II. -A1c is 6.8. She has been taking Jardiance 25mg . 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 Foot care discussed. Advised weight loss and goal blood sugars is less than 130 in the morning and postprandial less than 180 Right hip joint pain. Differential is osteoarthritis, tendinitis. X-ray of the hip was not concerning, she has been doing stretches at home with improvement. She has an appointment coming up with orthopedic. Continue on Tylenol and Advil With food. Encouraged to lose weight Hypertension. Blood pressure well controlled on current regimen. Continue Losartan Potassium-HCTZ 50-12.5 MG daily Hyperlipidemia. Recent lipid panel is abnormal, goal of total cholesterol to be below 199 and LDL to be below 70. Trigs goal below 150. I have increased Pravastatin 20 MG daily. Modification discussed, will check lipid panel in 4-6 weeks Fatty liver. Weight loss recommended and avoid heavy doses of Tylenol. GERD. Continue Omeprazole 20 MG Once a day. ASHLEY. She sleeps well on CPAP. ADE. Stable. She is on Hydroxyzine as needed. Morbid obesity. Advised dietary restrictions and regimental exercise. Goal is to lose 5-6 lbs a month. Due to current global pandemic of Covid -19 this visit was conducted over telephone in line with National Social Distancing Guidelines. Data gathered during this visit by patient self-report. Patient provided verbal consent to conduct the visit by telemedicine. Patient understands that it is a billable visit. Patient located in a home setting in [facility] during this telemedicine visit. Provider located at [facility] in [place] in [facility] General concerns have been discussed I have rendered the services for this patient under direct supervision of Dr. Oliver, who did not see the patient but was available upon request 11/13/2024 Gastro-esophageal reflux disease without esophagitis (ICD-10 - K21.9) Mrs. Dominguez is a 58-year-old lady with hypertension, acid reflux, generalized anxiety disorder and morbid obesity here for follow-up. Plan is as follows: DM type II. -A1c is 6.8. She has been taking Jardiance 25mg . 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 Foot care discussed. Advised weight loss and goal blood sugars is less than 130 in the morning and postprandial less than 180 Right hip joint pain. Differential is osteoarthritis, tendinitis. X-ray of the hip was not concerning, she has been doing stretches at home with improvement. She has an appointment coming up with orthopedic. Continue on Tylenol and Advil With food. Encouraged to lose weight Hypertension. Blood pressure well controlled on current regimen. Continue Losartan Potassium-HCTZ 50-12.5 MG daily Hyperlipidemia. Recent lipid panel is abnormal, goal of total cholesterol to be below 199 and LDL to be below 70. Trigs goal below 150. I have increased Pravastatin 20 MG daily. Modification discussed, will check lipid panel in 4-6 weeks Fatty liver. Weight loss recommended and avoid heavy doses of Tylenol. GERD. Continue Omeprazole 20 MG Once a day. ASHLEY. She sleeps well on CPAP. ADE. Stable. She is on Hydroxyzine as needed. Morbid obesity. Advised dietary restrictions and regimental exercise. Goal is to lose 5-6 lbs a month. Due to current global pandemic of Covid -19 this visit was conducted over telephone in line with National Social Distancing Guidelines. Data gathered during this visit by patient self-report. Patient provided verbal consent to conduct the visit by telemedicine. Patient understands that it is a billable visit. Patient located in a home setting in [facility] during this telemedicine visit. Provider located at [facility] in [place] in [facility] General concerns have been discussed I have rendered the services for this patient under direct supervision of Dr. Oliver, who did not see the patient but was available upon request 05/13/2024 Gastro-esophageal reflux disease without esophagitis (ICD-10 - K21.9) Mrs. Dominguez is a 58-year-old lady with hypertension, acid reflux, generalized anxiety disorder and morbid obesity here for follow up. Plan is as follows: DM type II. -A1c is 6.6. She has been taking Jardiance 25mg half tab. Advised on taking full tab. 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 Foot care discussed. Advised weight loss and goal blood sugars is less than 130 in the morning and postprandial less than 180 - Referred patient to Vascular. Hypertension. EKG is done in the office today. HR of 79bpm. Sinus Rhythm. No ST elevation or depression. No BBB. -Blood pressure well controlled on current regimen. Continue Losartan Potassium-HCTZ 50-12.5 MG daily Hyperlipidemia. -Last lipid panel within normal limits. Suggested dietary modifications. Continue Pravastatin 10 MG daily. - Fatty liver. Weight loss recommended and avoid heavy doses of Tylenol. GERD. -Continue Omeprazole 20 MG Once a day. ASHLEY. -She sleeps well on CPAP. ADE. - Stable. She stopped Lorazepam. She is on Hydroxyzine as needed. Morbid obesity. - Advised dietary restrictions and regimental exercise. Goal is to lose 5-6 lbs a month. Vision screening: Vision is stable hearing is stable. She is UTD on screenings and vaccinations. PHQ-9 of 0. Screening blood work before next appointment. General health concerns discussed with patient. I have rendered the services for this patient under direct supervision of Dr. Oliver, who did not see the patient but was available upon request 09/18/2024 Gastro-esophageal reflux disease without esophagitis (ICD-10 - K21.9) Mrs. Dominguez is a 58-year-old lady with hypertension, acid reflux, generalized anxiety disorder and morbid obesity here for follow-up and also complains of right hip joint pain Plan is as follows: Right hip joint pain. Differential is osteoarthritis, tendinitis. Will do x-ray of the right hip joint. She is not interested to have physical therapy and referral to orthopedic. She can take [id number] Tylenol arthritis along with NSAIDs with food. Encouraged to lose weight DM type II. -A1c is 6.6. She has been taking Jardiance 25mg half tab. Advised on taking full tab. 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 Foot care discussed. Advised weight loss and goal blood sugars is less than 130 in the morning and postprandial less than 180 - Referred patient to Vascular. Hypertension. EKG is done in the office today. HR of 79bpm. Sinus Rhythm. No ST elevation or depression. No BBB. -Blood pressure well controlled on current regimen. Continue Losartan Potassium-HCTZ 50-12.5 MG daily Hyperlipidemia. -Last lipid panel within normal limits. Suggested dietary modifications. Continue Pravastatin 10 MG daily. - Fatty liver. Weight loss recommended and avoid heavy doses of Tylenol. GERD. -Continue Omeprazole 20 MG Once a day. ASHLEY. -She sleeps well on CPAP. ADE. - Stable. She stopped Lorazepam. She is on Hydroxyzine as needed. Morbid obesity. - Advised dietary restrictions and regimental exercise. Goal is to lose 5-6 lbs a month. Vision screening: Vision is stable hearing is stable. She is UTD on screenings and vaccinations. PHQ-9 of 0. Screening blood work before next appointment. General health concerns discussed with patient. 09/18/2024 Fatty (change of) liver, not elsewhere classified (ICD-10 - K76.0) Mrs. Dominguez is a 58-year-old lady with hypertension, acid reflux, generalized anxiety disorder and morbid obesity here for follow-up and also complains of right hip joint pain Plan is as follows: Right hip joint pain. Differential is osteoarthritis, tendinitis. Will do x-ray of the right hip joint. She is not interested to have physical therapy and referral to orthopedic. She can take [id number] Tylenol arthritis along with NSAIDs with food. Encouraged to lose weight DM type II. -A1c is 6.6. She has been taking Jardiance 25mg half tab. Advised on taking full tab. 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 Foot care discussed. Advised weight loss and goal blood sugars is less than 130 in the morning and postprandial less than 180 - Referred patient to Vascular. Hypertension. EKG is done in the office today. HR of 79bpm. Sinus Rhythm. No ST elevation or depression. No BBB. -Blood pressure well controlled on current regimen. Continue Losartan Potassium-HCTZ 50-12.5 MG daily Hyperlipidemia. -Last lipid panel within normal limits. Suggested dietary modifications. Continue Pravastatin 10 MG daily. - Fatty liver. Weight loss recommended and avoid heavy doses of Tylenol. GERD. -Continue Omeprazole 20 MG Once a day. ASHLEY. -She sleeps well on CPAP. ADE. - Stable. She stopped Lorazepam. She is on Hydroxyzine as needed. Morbid obesity. - Advised dietary restrictions and regimental exercise. Goal is to lose 5-6 lbs a month. Vision screening: Vision is stable hearing is stable. She is UTD on screenings and vaccinations. PHQ-9 of 0. Screening blood work before next appointment. General health concerns discussed with patient. 05/13/2024 Fatty (change of) liver, not elsewhere classified (ICD-10 - K76.0) Mrs. Dominguez is a 58-year-old lady with hypertension, acid reflux, generalized anxiety disorder and morbid obesity here for follow up. Plan is as follows: DM type II. -A1c is 6.6. She has been taking Jardiance 25mg half tab. Advised on taking full tab. 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 Foot care discussed. Advised weight loss and goal blood sugars is less than 130 in the morning and postprandial less than 180 - Referred patient to Vascular. Hypertension. EKG is done in the office today. HR of 79bpm. Sinus Rhythm. No ST elevation or depression. No BBB. -Blood pressure well controlled on current regimen. Continue Losartan Potassium-HCTZ 50-12.5 MG daily Hyperlipidemia. -Last lipid panel within normal limits. Suggested dietary modifications. Continue Pravastatin 10 MG daily. - Fatty liver. Weight loss recommended and avoid heavy doses of Tylenol. GERD. -Continue Omeprazole 20 MG Once a day. ASHLEY. -She sleeps well on CPAP. ADE. - Stable. She stopped Lorazepam. She is on Hydroxyzine as needed. Morbid obesity. - Advised dietary restrictions and regimental exercise. Goal is to lose 5-6 lbs a month. Vision screening: Vision is stable hearing is stable. She is UTD on screenings and vaccinations. PHQ-9 of 0. Screening blood work before next appointment. General health concerns discussed with patient. I have rendered the services for this patient under direct supervision of Dr. Oliver, who did not see the patient but was available upon request 11/13/2024 Fatty (change of) liver, not elsewhere classified (ICD-10 - K76.0) Mrs. Dominguez is a 58-year-old lady with hypertension, acid reflux, generalized anxiety disorder and morbid obesity here for follow-up. Plan is as follows: DM type II. -A1c is 6.8. She has been taking Jardiance 25mg . 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 Foot care discussed. Advised weight loss and goal blood sugars is less than 130 in the morning and postprandial less than 180 Right hip joint pain. Differential is osteoarthritis, tendinitis. X-ray of the hip was not concerning, she has been doing stretches at home with improvement. She has an appointment coming up with orthopedic. Continue on Tylenol and Advil With food. Encouraged to lose weight Hypertension. Blood pressure well controlled on current regimen. Continue Losartan Potassium-HCTZ 50-12.5 MG daily Hyperlipidemia. Recent lipid panel is abnormal, goal of total cholesterol to be below 199 and LDL to be below 70. Trigs goal below 150. I have increased Pravastatin 20 MG daily. Modification discussed, will check lipid panel in 4-6 weeks Fatty liver. Weight loss recommended and avoid heavy doses of Tylenol. GERD. Continue Omeprazole 20 MG Once a day. ASHLEY. She sleeps well on CPAP. ADE. Stable. She is on Hydroxyzine as needed. Morbid obesity. Advised dietary restrictions and regimental exercise. Goal is to lose 5-6 lbs a month. Due to current global pandemic of Covid -19 this visit was conducted over telephone in line with National Social Distancing Guidelines. Data gathered during this visit by patient self-report. Patient provided verbal consent to conduct the visit by telemedicine. Patient understands that it is a billable visit. Patient located in a home setting in [facility] during this telemedicine visit. Provider located at [facility] in [place] in [facility] General concerns have been discussed I have rendered the services for this patient under direct supervision of Dr. Oliver, who did not see the patient but was available upon request 11/13/2024 Obstructive sleep apnea (adult) (pediatric) (ICD-10 - G47.33) Mrs. Dominguez is a 58-year-old lady with hypertension, acid reflux, generalized anxiety disorder and morbid obesity here for follow-up. Plan is as follows: DM type II. -A1c is 6.8. She has been taking Jardiance 25mg . 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 Foot care discussed. Advised weight loss and goal blood sugars is less than 130 in the morning and postprandial less than 180 Right hip joint pain. Differential is osteoarthritis, tendinitis. X-ray of the hip was not concerning, she has been doing stretches at home with improvement. She has an appointment coming up with orthopedic. Continue on Tylenol and Advil With food. Encouraged to lose weight Hypertension. Blood pressure well controlled on current regimen. Continue Losartan Potassium-HCTZ 50-12.5 MG daily Hyperlipidemia. Recent lipid panel is abnormal, goal of total cholesterol to be below 199 and LDL to be below 70. Trigs goal below 150. I have increased Pravastatin 20 MG daily. Modification discussed, will check lipid panel in 4-6 weeks Fatty liver. Weight loss recommended and avoid heavy doses of Tylenol. GERD. Continue Omeprazole 20 MG Once a day. ASHLEY. She sleeps well on CPAP. ADE. Stable. She is on Hydroxyzine as needed. Morbid obesity. Advised dietary restrictions and regimental exercise. Goal is to lose 5-6 lbs a month. Due to current global pandemic of Covid -19 this visit was conducted over telephone in line with National Social Distancing Guidelines. Data gathered during this visit by patient self-report. Patient provided verbal consent to conduct the visit by telemedicine. Patient understands that it is a billable visit. Patient located in a home setting in [facility] during this telemedicine visit. Provider located at [facility] in [place] in [facility] General concerns have been discussed I have rendered the services for this patient under direct supervision of Dr. Oliver, who did not see the patient but was available upon request 05/13/2024 Obstructive sleep apnea (adult) (pediatric) (ICD-10 - G47.33) Mrs. Dominguez is a 58-year-old lady with hypertension, acid reflux, generalized anxiety disorder and morbid obesity here for follow up. Plan is as follows: DM type II. -A1c is 6.6. She has been taking Jardiance 25mg half tab. Advised on taking full tab. 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 Foot care discussed. Advised weight loss and goal blood sugars is less than 130 in the morning and postprandial less than 180 - Referred patient to Vascular. Hypertension. EKG is done in the office today. HR of 79bpm. Sinus Rhythm. No ST elevation or depression. No BBB. -Blood pressure well controlled on current regimen. Continue Losartan Potassium-HCTZ 50-12.5 MG daily Hyperlipidemia. -Last lipid panel within normal limits. Suggested dietary modifications. Continue Pravastatin 10 MG daily. - Fatty liver. Weight loss recommended and avoid heavy doses of Tylenol. GERD. -Continue Omeprazole 20 MG Once a day. ASHLEY. -She sleeps well on CPAP. ADE. - Stable. She stopped Lorazepam. She is on Hydroxyzine as needed. Morbid obesity. - Advised dietary restrictions and regimental exercise. Goal is to lose 5-6 lbs a month. Vision screening: Vision is stable hearing is stable. She is UTD on screenings and vaccinations. PHQ-9 of 0. Screening blood work before next appointment. General health concerns discussed with patient. I have rendered the services for this patient under direct supervision of Dr. Oliver, who did not see the patient but was available upon request 09/18/2024 Obstructive sleep apnea (adult) (pediatric) (ICD-10 - G47.33) Mrs. Dominguez is a 58-year-old lady with hypertension, acid reflux, generalized anxiety disorder and morbid obesity here for follow-up and also complains of right hip joint pain Plan is as follows: Right hip joint pain. Differential is osteoarthritis, tendinitis. Will do x-ray of the right hip joint. She is not interested to have physical therapy and referral to orthopedic. She can take [id number] Tylenol arthritis along with NSAIDs with food. Encouraged to lose weight DM type II. -A1c is 6.6. She has been taking Jardiance 25mg half tab. Advised on taking full tab. 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 Foot care discussed. Advised weight loss and goal blood sugars is less than 130 in the morning and postprandial less than 180 - Referred patient to Vascular. Hypertension. EKG is done in the office today. HR of 79bpm. Sinus Rhythm. No ST elevation or depression. No BBB. -Blood pressure well controlled on current regimen. Continue Losartan Potassium-HCTZ 50-12.5 MG daily Hyperlipidemia. -Last lipid panel within normal limits. Suggested dietary modifications. Continue Pravastatin 10 MG daily. - Fatty liver. Weight loss recommended and avoid heavy doses of Tylenol. GERD. -Continue Omeprazole 20 MG Once a day. ASHLEY. -She sleeps well on CPAP. ADE. - Stable. She stopped Lorazepam. She is on Hydroxyzine as needed. Morbid obesity. - Advised dietary restrictions and regimental exercise. Goal is to lose 5-6 lbs a month. Vision screening: Vision is stable hearing is stable. She is UTD on screenings and vaccinations. PHQ-9 of 0. Screening blood work before next appointment. General health concerns discussed with patient. 11/13/2024 Mixed hyperlipidemia (ICD-10 - E78.2) Mrs. Dominguez is a 58-year-old lady with hypertension, acid reflux, generalized anxiety disorder and morbid obesity here for follow-up. Plan is as follows: DM type II. -A1c is 6.8. She has been taking Jardiance 25mg . 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 Foot care discussed. Advised weight loss and goal blood sugars is less than 130 in the morning and postprandial less than 180 Right hip joint pain. Differential is osteoarthritis, tendinitis. X-ray of the hip was not concerning, she has been doing stretches at home with improvement. She has an appointment coming up with orthopedic. Continue on Tylenol and Advil With food. Encouraged to lose weight Hypertension. Blood pressure well controlled on current regimen. Continue Losartan Potassium-HCTZ 50-12.5 MG daily Hyperlipidemia. Recent lipid panel is abnormal, goal of total cholesterol to be below 199 and LDL to be below 70. Trigs goal below 150. I have increased Pravastatin 20 MG daily. Modification discussed, will check lipid panel in 4-6 weeks Fatty liver. Weight loss recommended and avoid heavy doses of Tylenol. GERD. Continue Omeprazole 20 MG Once a day. ASHLEY. She sleeps well on CPAP. ADE. Stable. She is on Hydroxyzine as needed. Morbid obesity. Advised dietary restrictions and regimental exercise. Goal is to lose 5-6 lbs a month. Due to current global pandemic of Covid -19 this visit was conducted over telephone in line with National Social Distancing Guidelines. Data gathered during this visit by patient self-report. Patient provided verbal consent to conduct the visit by telemedicine. Patient understands that it is a billable visit. Patient located in a home setting in [facility] during this telemedicine visit. Provider located at [facility] in [place] in [facility] General concerns have been discussed I have rendered the services for this patient under direct supervision of Dr. Oliver, who did not see the patient but was available upon request 04/22/2024 58-year-old obese lady with history of anxiety disorder diabetes seen today for post hospital discharge and follow-up. Palpitation secondary to acute panic attack include anxiety disorder. Less likely to be a cardiac arrhythmia is all the workup at this date has been unremarkable. Saul's vitals are completely stable however patient was reporting palpitation heart rate and bloood pressure is wiithin normal limits Four anxiety disorders she is on hydroxyzine , we have advised that she can take hydroxyzine 25 mg three times a day if she feels anxious if the ssymptoms are not controlled she can increase it to 50 mg. She is already on lorazepam for acute panic attack which she does not use that much. We discussed about other antidepressants and anxxiolytics. She would talk to Dr. Oliver on her next appointment for starting last problem or otheer SSRIs if needed. She is more prone to keep the hydroxyzine and not to get on any long-term antianxiety or antidepressants Palpitations, if despite controlling her anxiety symptoms she continues to have palpitation we can refer her to a poiser balance for 30 days loop recorder Hypertension will control continue current Saniya Diabetes mellitus controlled continue the audience and metformin All questions were answered today no new acute issues Plan Of Treatment Pending Test Test Name Order Date X ray : Knee, left 2 views 12/19/2018 Electrocardiogram (ECG) 12/06/2017 Xray: Hip Jhvvo-Uuovvyei-Rwp 2 Vws 09/18 Hemoglobin [id number] 05/13/2024 Lipid [id number] 11/13/2024 Future Test Test Name Order Date US Liver 12/06/2017 Insurance Providers Payer Name Payer Address Payer Phone Subscriber Number Group Number Insured Name Patient Relationship to Insured Coverage Start Date Coverage End Date [employer] [address] [place] [phone] [id number] Yulisa Dominguez Self - patient is the insured Medical (General) History Medical History History ICD Code hypertension, benign Anxiety disorder Fatty liver and mild hepatomegaly Obstructive sleep apnea Class III obesity diabetes mellitus type 2 Surgical History Surgery Date(Month/Year) knee surgery polypectomy, uterine polyps 08/2020 polypectomy, uterine polyps 11/2021 total hysterectomy, Dr. Broussard [facility] 05/2022 Hospitalization History Reason Date(Month/Year)
== END 2024-12-08 15:48 | disposition home or self-care (01) ==
LOC: HO.HOS 14:27
PROVIDERS: PCP Hospitalist; Visit Provider Physician Assistant
DX: M53.3 Sacrococcygeal disorders, not elsewhere classified (principal); G89.29 Other chronic pain
CPT/HCPCS: 99203

== ENCOUNTER → 2024-12-08 14:28 | Outpatient (BNV) | payer OTHER, SELFPAY | PROVIDERS: Visit Provider Radiology Diagnostic Radiology | DX: M16.11 Unilateral primary osteoarthritis, right hip (principal) | CPT/HCPCS: 73502 ==